=== PATIENT | female | born 1970 | race Asian ===

== ENCOUNTER 2021-12-02 17:55 | Emergency (ER) | payer OTHER, SELFPAY ==
[2021-12-02 18:37] VITALS: BMI 34.7
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
== END 2021-12-02 19:34 | disposition left against medical advice (07) ==
PROVIDERS: Emergency Provider Emergency Medicine
DX: R07.9 Chest pain, unspecified (principal)
CPT/HCPCS: 71101; 99283

== ENCOUNTER 2022-03-31 19:11 | Emergency (ER) | payer OTHER, MEDICAID, SELFPAY ==
[2022-03-31 19:15] VITALS: BP 146/86; PULSE 94; RESP 22; TEMP 36.4; O2SAT 97
--- NOTE | 2022-03-31 19:19 | DI.RAD.S_ITS ---
PROCEDURE: XR KNEE LT 3V INDICATIONS: pain TECHNIQUE: 3 views of the knee were acquired. COMPARISON: None. FINDINGS: Bones: No fractures or dislocations. There is mild osteophytosis. Moderate lateral tilt and shift of the patella is demonstrated with mild narrowing in the patellofemoral compartment laterally. No suspicious bony lesions. Soft tissues: There is a moderate joint effusion. No suspicious soft tissue calcifications. IMPRESSION: 1. No fracture or dislocation. 2. Moderate size joint effusion. 3. Mild osteoarthritic changes most prominent within the patellofemoral compartment. Dictated by: Franck Ascencio M.D. on 03/31/2022 at 20:08 Approved by: Franck Ascencio M.D. on 03/31/2022 at 20:11
--- NOTE | 2022-03-31 19:19 | DI.RAD.S_ITS ---
PROCEDURE: XR KNEE RT 3V INDICATIONS: pain TECHNIQUE: 3 views of the knee were acquired. COMPARISON: [facility], CR, XR KNEE LT 3V, 03/31/2022, 19:18. FINDINGS: Bones: No fractures or dislocations. There is mild osteophytosis. Mild joint space narrowing is demonstrated in the medial compartment with mild subchondral sclerosis. There is moderate lateral tilt and shift of the patella with mild narrowing in the patellofemoral compartment laterally. No suspicious bony lesions. Soft tissues: There is a moderate joint effusion. No suspicious soft tissue calcifications. IMPRESSION: 1. No fracture or dislocation. 2. Moderate joint effusion. 3. Mild osteoarthritic changes, most prominent within the patellofemoral compartment. Dictated by: Franck Ascencio M.D. on 03/31/2022 at 20:11 Approved by: Franck Ascencio M.D. on 03/31/2022 at 20:13
== END 2022-03-31 19:59 | disposition left against medical advice (07) ==
PROVIDERS: Emergency Provider Emergency Medicine
DX: M25.562 Pain in left knee (principal); M25.561 Pain in right knee
CPT/HCPCS: 73562; 99281

== ENCOUNTER 2022-04-15 16:06 | Emergency (ER) | payer OTHER, MEDICAID, SELFPAY ==
[2022-04-15 16:10] VITALS: BP 180/82; PULSE 107; RESP 18; TEMP 37; O2SAT 98; BMI 35.6
== END 2022-04-15 16:16 | disposition left against medical advice (07) ==
LOC: ED 17:13
PROVIDERS: Emergency Provider Emergency Medicine
CPT/HCPCS: 99281

== ENCOUNTER → 2022-04-23 11:36 | Outpatient (CLI) | payer OTHER, MEDICAID, SELFPAY ==
[2022-04-23 12:30] LABS: Influenza A - CEPHEID Flu A NEGATIVE (NEGATIVE); Influenza B - CEPHEID Flu B NEGATIVE (NEGATIVE)
[2022-04-23 14:21] LABS: COVID-19 CEPHEID PCR (VTM/NP) POSITIVE (Negative)
== END ==
PROVIDERS: Visit Provider Nurse Practitioner
DX: R05.9 Cough, unspecified (principal); R50.9 Fever, unspecified
CPT/HCPCS: 0240U

== ENCOUNTER 2022-06-25 05:29 | Emergency (ER) | payer OTHER, MEDICAID, SELFPAY ==
[2022-06-25] VITALS (14 sets, daily range): BP systolic 98–141; BP diastolic 54–72; PULSE 92–183; RESP 15–37; O2SAT 96–100; BMI 39.3
--- NOTE | 2022-06-25 05:37 | DI.RAD.S_ITS ---
PROCEDURE: XR CHEST 1V INDICATIONS: chest pain TECHNIQUE: One view of the chest was acquired. COMPARISON: [facility], CR, XR RIBS LT MIN 3V W CXR1V, 12/02/2021, 18:33. FINDINGS: Surgical changes and devices: None. Lungs and pleura: Lungs are clear. No pleural effusions or pneumothorax. Mediastinum: Mediastinal contours appear normal. Heart size is borderline enlarged, stable when compared to the prior exam. Bones and chest wall: No suspicious bony lesions. Overlying soft tissues appear unremarkable. IMPRESSION: Borderline cardiomegaly. No acute cardiopulmonary abnormality. There is no significant discrepancy when compared to the overnight preliminary report. Dictated by: Paulie Pastrana M.D. on 06/25/2022 at 8:14 Approved by: Paulie Pastrana M.D. on 06/25/2022 at 8:16
--- NOTE | 2022-06-25 05:49 | ED_ITS ---
HPI - Chest Pain <Brandon Butler MD - Last Filed: 07/01/22 18:14> General Chief Complaint: Chest Pain Stated Complaint: chest pain, cold sweaty Time Seen by Provider: 06/25/22 05:36 History of Present Illness HPI narrative: Patient brought here by her boyfriend. Complains 3 hours palpitations chest discomfort diaphoresis dizziness. Patient denies any medical problems. She is not seen a doctor in 7 years. No history of heart attack strokes or diabetes or arrhythmias. No recent illness. Denies any drugs or alcohol. This occurred while she was at work tonight. Patient is in SVT. No prior history of this. Denies any thyroid disease. Related Data Previous Rx's Medication Instructions Recorded benzonatate 200 mg capsule 200 mg PO BID-TID PRN cough #30 04/23/22 caps fluticasone propionate 50 1 spray intranasal BID sinusitis 04/23/22 mcg/actuation nasal #16 grams spray,suspension (Flonase Allergy Relief) Allergies Allergy/AdvReac Type Severity Reaction Status Date / Time aspirin Allergy Verified 04/23/22 11:03 Penicillins Allergy Verified 04/23/22 11:03 Review of Systems <Brandon Butler MD - Last Filed: 07/01/22 18:14> Review of Systems Narrative: GENERAL: Denies chills, fatigue, positive for malaise, negative for fever, positive for sweats. HEENT: Denies sinus pain, ear pain, sore throat RESPIRATORY: Denies dyspnea, cough CARDIOVASCULAR: Positive for chest pain, palpitations GASTROINTESTINAL: Denies nausea, vomiting, abdominal pain : Denies dysuria, frequency, hematuria MUSCULOSKELETAL: denies muscle or bony pain SKIN: Denies rash, skin lesions NEUROLOGIC: Denies weakness, numbness, positive for dizziness ROS Unobtainable: All systems reviewed & are unremarkable except as noted in HPI and below Patient History <Brandon Butler MD - Last Filed: 07/01/22 18:14> Social History Smoking Status: Current every day smoker Smoking Status: Current every day smoker alcohol intake frequency: 0-2 drinks per day Substance Use Type: does not use Exam <Brandon Butler MD - Last Filed: 07/01/22 18:14> Narrative Exam Narrative: GENERAL: in no distress, not toxic not dyspneic HEAD: Normocephalic. EYES: Pupils equal round No scleral icterus. ENT: Mucous membranes moist. NECK: Trachea midline. CARDIOVASCULAR: Tachycardia but Regular rate and rhythm RESPIRATORY: Clear to auscultation. Breath sounds equal bilaterally. No wheezes, rales, or rhonchi. GASTROINTESTINAL: Abdomen soft, non-tender EXTREMITIES: No gross deformities. BACK: No flank tenderness. NEURO: AOx4. SKIN: Warm and slightly diaphoretic PSYCH: Is slightly anxious, is cooperative Initial Vital Signs Initial Vital Signs: Vital Signs Pulse Rate 183 H 06/25/22 05:45 Respiratory Rate 22 06/25/22 05:45 Blood Pressure 98/64 06/25/22 05:45 Pulse Oximetry 99 06/25/22 05:45 Oxygen Delivery Method 06/25/22 05:45 <Malika Carter DO - Last Filed: 06/30/22 04:09> Initial Vital Signs Initial Vital Signs: Vital Signs Pulse Rate 183 H 06/25/22 05:45 Respiratory Rate 06/25/22 05:45 Blood Pressure 98/64 06/25/22 05:45 Pulse Oximetry 99 06/25/22 05:45 Oxygen Delivery Method 06/25/22 05:45 Course <Brandon Butler MD - Last Filed: 07/01/22 18:14> Course Course Narrative: 7:00 a.m.. Sign out to Dr. Carter 2nd troponin is pending at 7:45 a.m.. Patient has no previous medical history. Patient converted very well with Adenocard. X-ray chest pending results. Orders Ordered: Discontinued Medications Adenosine (Adenosine 6 Mg/2 Ml Vial) 6 mg IV NOW ONE Stop: 06/25/22 05:41 Last Admin: 06/25/22 05:55 Dose: 6 mg Documented By: AP Vital Signs Vital signs: Vital Signs - 8 hr 06/25/22 05:45 06/25/22 05:58 06/25/22 05:59 Pulse Rate 183 H 110 H 110 H Respiratory Rate 22 26 H 37 H Blood Pressure 98/64 Pulse Oximetry 99 Oxygen Delivery Method Room Air 06/25/22 05:59 06/25/22 06:00 06/25/22 06:00 Pulse Rate 110 H Respiratory Rate 25 H Blood Pressure 104/56 L 104/56 L Pulse Oximetry Oxygen Delivery Method 06/25/22 06:30 06/25/22 06:30 06/25/22 07:00 Pulse Rate 107 H 104 H Respiratory Rate 18 18 Blood Pressure 98/64 Pulse Oximetry 96 96 Oxygen Delivery Method 06/25/22 07:01 06/25/22 07:01 06/25/22 07:30 Pulse Rate 104 H Respiratory Rate 18 Blood Pressure 113/58 L 112/54 L Pulse Oximetry 96 Oxygen Delivery Method 06/25/22 07:30 06/25/22 08:00 06/25/22 08:00 Pulse Rate 98 H 97 H Respiratory Rate 18 18 Blood Pressure 127/58 L Pulse Oximetry 96 98 Oxygen Delivery Method 06/25/22 08:30 06/25/22 08:30 06/25/22 09:00 Pulse Rate 95 H Respiratory Rate 17 Blood Pressure 114/57 L 118/67 Pulse Oximetry 98 Oxygen Delivery Method 06/25/22 09:00 Pulse Rate 93 H Respiratory Rate 16 Blood Pressure Pulse Oximetry 99 Oxygen Delivery Method <Malika Carter, - Last Filed: 06/30/22 04:09> Orders Ordered: Discontinued Medications Adenosine (Adenosine 6 Mg/2 Ml Vial) 6 mg IV NOW ONE Stop: 06/25/22 05:41 Last Admin: 06/25/22 05:55 Dose: 6 mg Documented By: AP Vital Signs Vital signs: Vital Signs - 8 hr 06/25/22 05:45 06/25/22 05:58 06/25/22 05:59 Pulse Rate 183 H 110 H 110 H Respiratory Rate 22 26 H 37 H Blood Pressure 98/64 Pulse Oximetry 99 Oxygen Delivery Method Room Air 06/25/22 05:59 06/25/22 06:00 06/25/22 06:00 Pulse Rate 110 H Respiratory Rate 25 H Blood Pressure 104/56 L 104/56 L Pulse Oximetry Oxygen Delivery Method 06/25/22 06:30 06/25/22 06:30 06/25/22 07:00 Pulse Rate 107 H 104 H Respiratory Rate 18 18 Blood Pressure 98/64 Pulse Oximetry 96 96 Oxygen Delivery Method 06/25/22 07:01 06/25/22 07:01 06/25/22 07:30 Pulse Rate 104 H Respiratory Rate 18 Blood Pressure 113/58 L 112/54 L Pulse Oximetry 96 Oxygen Delivery Method 06/25/22 07:30 06/25/22 08:00 06/25/22 08:00 Pulse Rate 98 H 97 H Respiratory Rate 18 18 Blood Pressure 127/58 L Pulse Oximetry 96 98 Oxygen Delivery Method 06/25/22 08:30 06/25/22 08:30 06/25/22 09:00 Pulse Rate 95 H Respiratory Rate 17 Blood Pressure 114/57 L 118/67 Pulse Oximetry 98 Oxygen Delivery Method 06/25/22 09:00 Pulse Rate 93 H Respiratory Rate 16 Blood Pressure Pulse Oximetry 99 Oxygen Delivery Method MDM - Chest Pain <Brandon Butler MD - Last Filed: 07/01/22 18:14> Differential Diagnosis Differential diagnosis: Likely stable angina, unstable angina pectoris and other (SVT/AFib/AF flutter) Lab Data Result diagrams: 06/25/22 05:45 06/25/22 05:45 Labs: Lab Results 06/25/22 06/25/22 06/25/22 Range/Units 05:45 05:45 05:45 WBC 9.4 (4.5-11.0) X10^3/uL RBC 5.08 (4.0-5.2) X10^6/uL Hgb 15.0 (12.0-16.0) g/dL Hct 42.5 (36-46) % MCV 83.7 (80-100) fL MCH 29.6 (26-34) PG MCHC 35.4 (30-36) % RDW 13.3 (11.6-14.8) % Plt Count 319 (150-400) X10^3/uL Neut % (Auto) 68.6 (50-75) % Lymph % (Auto) 23.0 L (25-40) % [place] % (Auto) 7.3 (3-14) % Eos % (Auto) 0.1 L (2-4) % Baso % (Auto) 1.0 (0-2) % Neut # (Auto) 6500 (2439-2799) /uL Lymph # (Auto) 2200 (6304-0176) /uL [place] # (Auto) 700 (0-900) /uL Eos # (Auto) 0 (0-450) /uL Baso # (Auto) 100 (0-100) /uL Sodium 140 (137-145) mmol/L Potassium 3.8 (3.4-5.1) mmol/L Chloride 103 (98-107) mmol/L Carbon Dioxide 28 (22-32) mmol/L BUN 13 (7-17) mg/dL Creatinine 0.76 (0.52-1.04) mg/dL Estimated GFR > 60 (>60) mL/min BUN/Creatinine Ratio 17.1 (6-22) Glucose 115 H (70-100) mg/dL Calcium 9.0 (8.4-10.2) mg/dL Magnesium (1.6-2.3) mg/dL Total Bilirubin 0.6 (0.2-1.3) mg/dL AST 35 (14-36) IU/L ALT 22 (<35) IU/L Alkaline Phosphatase 123 (38-126) U/L Total Creatine Kinase 147 H (30-135) U/L CK-MB (CK-2) 2.63 H (<2.37) ng/mL CK-MB (CK-2) Rel Index 1.8 (1.5-5.0) % Troponin I < 0.012 (0.01-0.034) ng/mL Total Protein 9.3 H (6.3-8.2) g/dL Albumin 4.5 (3.5-5.0) g/dL Globulin 4.8 H (1.7-4.1) g/dL Albumin/Globulin Ratio 0.9 L (1.0-2.8) TSH 2.35 (0.47-4.68) uIU/mL 06/25/22 06/25/22 Range/Units 05:45 08:05 WBC (4.5-11.0) X10^3/uL RBC (4.0-5.2) X10^6/uL Hgb (12.0-16.0) g/dL Hct (36-46) % MCV (80-100) fL MCH (26-34) PG MCHC (30-36) % RDW (11.6-14.8) % Plt Count (150-400) X10^3/uL Neut % (Auto) (50-75) % Lymph % (Auto) (25-40) % [place] % (Auto) (3-14) % Eos % (Auto) (2-4) % Baso % (Auto) (0-2) % Neut # (Auto) (9021-0388) /uL Lymph # (Auto) (4868-4855) /uL [place] # (Auto) (0-900) /uL Eos # (Auto) (0-450) /uL Baso # (Auto) (0-100) /uL Sodium (137-145) mmol/L Potassium (3.4-5.1) mmol/L Chloride (98-107) mmol/L Carbon Dioxide (22-32) mmol/L BUN (7-17) mg/dL Creatinine (0.52-1.04) mg/dL Estimated GFR (>60) mL/min BUN/Creatinine Ratio (6-22) Glucose (70-100) mg/dL Calcium (8.4-10.2) mg/dL Magnesium 1.8 (1.6-2.3) mg/dL Total Bilirubin (0.2-1.3) mg/dL AST (14-36) IU/L ALT (<35) IU/L Alkaline Phosphatase (38-126) U/L Total Creatine Kinase 110 (30-135) U/L CK-MB (CK-2) 1.79 (<2.37) ng/mL CK-MB (CK-2) Rel Index 1.6 (1.5-5.0) % Troponin I 0.019 (0.01-0.034) ng/mL Total Protein (6.3-8.2) g/dL Albumin (3.5-5.0) g/dL Globulin (1.7-4.1) g/dL Albumin/Globulin Ratio (1.0-2.8) TSH (0.47-4.68) uIU/mL ECG Data Interpretation: 1st EKG at 5:38 a.m. Supraventricular tachycardia, rate 182 Second EKG at 6:00 a.m.. Sinus tachycardia rate [address] elevation or depression <Malika Carter DO - Last Filed: 06/30/22 04:09> Lab Data Labs: Lab Results 06/25/22 06/25/22 06/25/22 Range/Units 05:45 05:45 05:45 WBC 9.4 (4.5-11.0) X10^3/uL RBC 5.08 (4.0-5.2) X10^6/uL Hgb 15.0 (12.0-16.0) g/dL Hct 42.5 (36-46) % MCV 83.7 (80-100) fL MCH 29.6 (26-34) PG MCHC 35.4 (30-36) % RDW 13.3 (11.6-14.8) % Plt Count 319 (150-400) X10^3/uL Neut % (Auto) 68.6 (50-75) % Lymph % (Auto) 23.0 L (25-40) % [place] % (Auto) 7.3 (3-14) % Eos % (Auto) 0.1 L (2-4) % Baso % (Auto) 1.0 (0-2) % Neut # (Auto) 6500 (1622-3285) /uL Lymph # (Auto) 2200 (2643-7763) /uL [place] # (Auto) 700 (0-900) /uL Eos # (Auto) 0 (0-450) /uL Baso # (Auto) 100 (0-100) /uL Sodium 140 (137-145) mmol/L Potassium 3.8 (3.4-5.1) mmol/L Chloride 103 (98-107) mmol/L Carbon Dioxide 28 (22-32) mmol/L BUN 13 (7-17) mg/dL Creatinine 0.76 (0.52-1.04) mg/dL Estimated GFR > 60 (>60) mL/min BUN/Creatinine Ratio 17.1 (6-22) Glucose 115 H (70-100) mg/dL Calcium 9.0 (8.4-10.2) mg/dL Magnesium (1.6-2.3) mg/dL Total Bilirubin 0.6 (0.2-1.3) mg/dL AST 35 (14-36) IU/L ALT 22 (<35) IU/L Alkaline Phosphatase 123 (38-126) U/L Total Creatine Kinase 147 H (30-135) U/L CK-MB (CK-2) 2.63 H (<2.37) ng/mL CK-MB (CK-2) Rel Index 1.8 (1.5-5.0) % Troponin I < 0.012 (0.01-0.034) ng/mL Total Protein 9.3 H (6.3-8.2) g/dL Albumin 4.5 (3.5-5.0) g/dL Globulin 4.8 H (1.7-4.1) g/dL Albumin/Globulin Ratio 0.9 L (1.0-2.8) TSH 2.35 (0.47-4.68) uIU/mL 06/25/22 06/25/22 Range/Units 05:45 08:05 WBC (4.5-11.0) X10^3/uL RBC (4.0-5.2) X10^6/uL Hgb (12.0-16.0) g/dL Hct (36-46) % MCV (80-100) fL MCH (26-34) PG MCHC (30-36) % RDW (11.6-14.8) % Plt Count (150-400) X10^3/uL Neut % (Auto) (50-75) % Lymph % (Auto) (25-40) % [place] % (Auto) (3-14) % Eos % (Auto) (2-4) % Baso % (Auto) (0-2) % Neut # (Auto) (1090-3225) /uL Lymph # (Auto) (8294-0247) /uL [place] # (Auto) (0-900) /uL Eos # (Auto) (0-450) /uL Baso # (Auto) (0-100) /uL Sodium (137-145) mmol/L Potassium (3.4-5.1) mmol/L Chloride (98-107) mmol/L Carbon Dioxide (22-32) mmol/L BUN (7-17) mg/dL Creatinine (0.52-1.04) mg/dL Estimated GFR (>60) mL/min BUN/Creatinine Ratio (6-22) Glucose (70-100) mg/dL Calcium (8.4-10.2) mg/dL Magnesium 1.8 (1.6-2.3) mg/dL Total Bilirubin (0.2-1.3) mg/dL AST (14-36) IU/L ALT (<35) IU/L Alkaline Phosphatase (38-126) U/L Total Creatine Kinase 110 (30-135) U/L CK-MB (CK-2) 1.79 (<2.37) ng/mL CK-MB (CK-2) Rel Index 1.6 (1.5-5.0) % Troponin I 0.019 (0.01-0.034) ng/mL Total Protein (6.3-8.2) g/dL Albumin (3.5-5.0) g/dL Globulin (1.7-4.1) g/dL Albumin/Globulin Ratio (1.0-2.8) TSH (0.47-4.68) uIU/mL Imaging Data Chest x-ray: Radiologist's Impression: cardomegaly without heart failure. ECG Data Interpretation: 1st EKG at 5:38 a.m. Supraventricular tachycardia, rate 182 Second EKG at 6:00 a.m.. Sinus tachycardia rate [address] elevation or depression EKG 3 shows sinus rhythm rate of 90 6p are 158 QRS of 90 QTC [address] No acute [address] elevation or depression changes. Nonacute change comparison to priors. MDM Narrative Medical decision making narrative: 06/25/22 Mank: Patient signed out to myself by Dr. Butler. Patient seen independently evaluated by myself. Patient had 1st note episode of SVT, converted with adenosine. Chest x-ray shows cardiomegaly, no acute ST changes patient has had significant improvement in her heart rate during her stay without additional episodes. Patient's did not show any acute changes or significant electrolyte abnormalities. Troponin was repeated at 2 hour ana as well as EKG with no dynamic changes. It was noted patient had COVID in April of 2022. At this time plan for patient to follow up outpatient with Cardiology. 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 All questions answered. Discharge Plan Departure Patient Disposition: Home Clinical Impression: SVT (supraventricular tachycardia) Instructions: Paroxysmal Supraventricular Tachycardia Activity Restrictions/Additional Instructions: Follow-up with cardiology for recheck. In the interim you can follow up with your primary care physician. Please call for an appointment. Referral is included below. You have been diagnosed with SVT or supraventricular tachycardia. This can happen intermittently some individuals ultimately end up taking medication or even having an ablation of the heart but some individuals have very rare episodes and do not require any medications. Your heart size is slightly enlarged and you should follow up to have an echo at some point in the future. Please return if you have new or recurrent symptoms, if you are having chest pain, shortness of breath, lightheadedness or passing out, recurrent very fast and/or persistently fast heart rate, new swelling in your extremities or other new or concerning symptoms. Prescriptions: No Action fluticasone propionate [Flonase Allergy Relief] 50 mcg/actuation spray,susp ension 1 spray intranasal BID Qty: 16 0RF Rx Instructions: administer into each nostril benzonatate 200 mg capsule 200 mg PO BID-TID PRN (Reason: cough) Qty: 30 0RF Referrals: Miscellaneous,DoctorMD [Primary Care Provider] - Aliya Matias MD [Physician] - Visit Report Forms: Patient Portal/API
[2022-06-25 05:54] LABS: Add Manual Diff / Slide Review NO; Basophils Absolute Auto 100 /uL (0-100); Eosinophils Absolute Auto 0 /uL (0-450); Eosinophils Percent Auto 0.1 % (2-4); Hematocrit 42.5 % (36-46); Lymphocytes Absolute Auto 2200 /uL (1100-4500); Mean Corpuscular HGB Conc 35.4 % (30-36); Mean Corpuscular Hemoglobin 29.6 PG (26-34); Mean Corpuscular Volume 83.7 fL (80-100); Monocytes Absolute Auto 700 /uL (0-900); Monocytes Percent Auto 7.3 % (3-14); Neutrophils Absolute Auto 6500 /uL (1500-7000); Neutrophils Percent Auto 68.6 % (50-75); Platelet Count 319 X10^3/uL (150-400); Red Blood Cell Count 5.08 X10^6/uL (4.0-5.2); Red Cell Distribution Width 13.3 % (11.6-14.8); White Blood Cell Count 9.4 X10^3/uL (4.5-11.0)
[2022-06-25] MEDS: ADENOSINE 6 MG/2 ML VIAL IV (05:55)
[2022-06-25 06:06] LABS: Alanine Aminotransferase 22 IU/L (<35); Albumin 4.5 g/dL (3.5-5.0); Albumin Globulin Ratio 0.9 (1.0-2.8); BUN Creatinine Ratio 17.1 (6-22); Bilirubin Total 0.6 mg/dL (0.2-1.3); Blood Urea Nitrogen 13 mg/dL (7-17); Carbon Dioxide 28 mmol/L (22-32); Chloride 103 mmol/L (98-107); Creatine Kinase 147 U/L (30-135); Estimated Glomerular Filt Rate > 60 mL/min (>60); Globulin 4.8 g/dL (1.7-4.1); Glucose 115 mg/dL (70-100); Sodium 140 mmol/L (137-145); Total Protein 9.3 g/dL (6.3-8.2)
[2022-06-25 06:07] LABS: Aspartate Aminotransferase 35 IU/L (14-36); Potassium 3.8 mmol/L (3.4-5.1)
[2022-06-25 06:08] LABS: Alkaline Phosphatase 123 U/L (38-126)
[2022-06-25 06:18] LABS: Troponin I < 0.012 ng/mL (0.01-0.034)
[2022-06-25 06:21] LABS: CKMB % Relative Index 1.8 % (1.5-5.0); Creatine Kinase MB 2.63 ng/mL (<2.37)
[2022-06-25 06:23] LABS: HEMOLYSIS 75 (0-50)
[2022-06-25 06:38] LABS: Magnesium 1.8 mg/dL (1.6-2.3)
[2022-06-25 06:48] LABS: Thyroid Stimulating Hormone 2.35 uIU/mL (0.47-4.68)
[2022-06-25 08:29] LABS: Creatine Kinase 110 U/L (30-135)
[2022-06-25 08:42] LABS: Troponin I 0.019 ng/mL (0.01-0.034)
[2022-06-25 08:44] LABS: CKMB % Relative Index 1.6 % (1.5-5.0); Creatine Kinase MB 1.79 ng/mL (<2.37)
--- NOTE | 2022-06-25 09:26 | PC.NURSE ---
message left with bonny mckeonientemi to come pick patient up [phone]
== END 2022-06-25 10:47 | disposition home or self-care (01) ==
PROVIDERS: Emergency Medicine; Emergency Provider Emergency Medicine
DX: I47.1 Supraventricular tachycardia (principal); I51.7 Cardiomegaly; Z86.16 Personal history of COVID-19
CPT/HCPCS: 36415; 71045; 80053; 82550; 82553; 83735; 84443; 84484; 85025; 93005; 93010; 96374; 99284; J0153

== ENCOUNTER 2022-07-09 15:46 | Emergency (ER) | payer OTHER, MEDICAID, SELFPAY ==
[2022-07-09] VITALS (9 sets, daily range): BP systolic 113–131; BP diastolic 64–76; PULSE 89–110; RESP 17–22; TEMP 37.1; O2SAT 96–99; BMI 36.6
--- NOTE | 2022-07-09 16:01 | DI.RAD.S_ITS ---
PROCEDURE: XR CHEST 1V INDICATIONS: chest pain TECHNIQUE: One view of the chest was acquired. COMPARISON: [facility], CR, XR CHEST 1V, 06/25/2022, 6:05. FINDINGS: Surgical changes and devices: None. Lungs and pleura: Lungs are clear. No pleural effusions or pneumothorax. Mediastinum: Mediastinal contours appear normal. Heart size is normal. Bones and chest wall: No suspicious bony lesions. Overlying soft tissues appear unremarkable. IMPRESSION: No acute process. Dictated by: Jenae Oates M.D. on 07/09/2022 at 16:23 Approved by: Jenae Oates M.D. on 07/09/2022 at 16:23
[2022-07-09 16:13] LABS: Add Manual Diff / Slide Review NO; Basophils Absolute Auto 100 /uL (0-100); Basophils Percent Auto 0.6 % (0-2); Eosinophils Absolute Auto 0 /uL (0-450); Eosinophils Percent Auto 0.1 % (2-4); Hematocrit 40.7 % (36-46); Hemoglobin 14.3 g/dL (12.0-16.0); Lymphocytes Absolute Auto 2400 /uL (1100-4500); Lymphocytes Percent Auto 26.9 % (25-40); Mean Corpuscular Hemoglobin 29.6 PG (26-34); Mean Corpuscular Volume 84.4 fL (80-100); Monocytes Absolute Auto 600 /uL (0-900); Monocytes Percent Auto 6.6 % (3-14); Neutrophils Absolute Auto 5800 /uL (1500-7000); Neutrophils Percent Auto 65.8 % (50-75); Platelet Count 317 X10^3/uL (150-400); Red Blood Cell Count 4.83 X10^6/uL (4.0-5.2); Red Cell Distribution Width 13.3 % (11.6-14.8); White Blood Cell Count 8.8 X10^3/uL (4.5-11.0)
[2022-07-09 17:18] LABS: Alanine Aminotransferase 21 IU/L (<35); Albumin 4.5 g/dL (3.5-5.0); Alkaline Phosphatase 115 U/L (38-126); Aspartate Aminotransferase 33 IU/L (14-36); BUN Creatinine Ratio 18.2 (6-22); Bilirubin Total 0.7 mg/dL (0.2-1.3); Blood Urea Nitrogen 16 mg/dL (7-17); Calcium 8.9 mg/dL (8.4-10.2); Carbon Dioxide 24 mmol/L (22-32); Chloride 103 mmol/L (98-107); Creatine Kinase 83 U/L (30-135); Estimated Glomerular Filt Rate > 60 mL/min (>60); Globulin 4.3 g/dL (1.7-4.1); Glucose 165 mg/dL (70-100); HEMOLYSIS 38 (0-50); Lipase 74 U/L (23-300); Potassium 3.5 mmol/L (3.4-5.1); Sodium 141 mmol/L (137-145); Total Protein 8.8 g/dL (6.3-8.2)
[2022-07-09 17:29] LABS: Troponin I < 0.012 ng/mL (0.01-0.034)
--- NOTE | 2022-07-09 17:32 | ED_ITS ---
HPI - Chest Pain General Chief Complaint: Chest Pain Stated Complaint: SVT, resolved with Diltiazem Time Seen by Provider: 07/09/22 16:01 Source: patient and EMS Mode of arrival: EMS Limitations: no limitations History of Present Illness HPI narrative: The patient is a 51-year-old female does not go to doctors and has no medical problems presents today for her 2nd episode of SVT in through the. She was previously seen on June 25 for the same. 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 She was given diltiazem 15 mg by EMS and converted into sinus rhythm quickly. She states she drinks Pepsi all day long and drinks a lot of caffeine. She has been resting comfortably in sinus rhythm denies any chest pain palpitations or shortness of breath Related Data Previous Rx's Medication Instructions Recorded benzonatate 200 mg capsule 200 mg PO BID-TID PRN cough #30 04/23/22 caps fluticasone propionate 50 1 spray intranasal BID sinusitis 04/23/22 mcg/actuation nasal #16 grams spray,suspension (Flonase Allergy Relief) Allergies Allergy/AdvReac Type Severity Reaction Status Date / Time aspirin Allergy Verified 04/23/22 11:03 Penicillins Allergy Verified 04/23/22 11:03 Review of Systems Review of Systems Narrative: GENERAL: Denies chills, fatigue, malaise, fever, sweats, travel HEENT: Denies sinus pain, ear pain, sore throat, difficulty swallowing, neck pain RESPIRATORY: Denies dyspnea, cough, wheezing, hemoptysis, sputum. CARDIOVASCULAR: See HPI GASTROINTESTINAL: Denies nausea, vomiting, abdominal pain, diarrhea, con stipation, melena. : Denies dysuria, frequency, incontinence, hematuria, urinary retention, flank pain. MUSCULOSKELETAL: Denies weakness, joint pain, or bony pain SKIN: No rash, no erythema, no pruritus NEUROLOGIC: Denies weakness, dizziness, headache, numbness, change in speech, confusion PSYCHIATRIC: No concerning psychosocial issues. 12 point review of systems is negative except for those stated above and HPI Patient History Social History Smoking Status: Current every day smoker Smoking Status: Current every day smoker alcohol intake frequency: 0-2 drinks per day Substance Use Type: does not use Exam Initial Vital Signs Initial Vital Signs: Vital Signs Temperature 98.7 F 07/09/22 15:54 Pulse Rate 109 H 07/09/22 15:54 Respiratory Rate 18 07/09/22 15:54 Blood Pressure 129/76 07/09/22 15:54 Pulse Oximetry 98 07/09/22 15:54 Oxygen Delivery Method 07/09/22 15:54 GENERAL: Alert pleasant 51-year-old female and in no acute distress. HEENT: Head atraumatic,EOMI, pupils reactive, face symmetric, moist mucous membranes CARDIOVASCULAR: Regular rate and rhythm without murmurs, rubs or gallops. RESPIRATORY: Breath sounds equal bilaterally, no wheezes rales or rhonchi. ABDOMEN: Soft, nontender. Normoactive bowel sounds all 4 quadrants. No guarding or rebound. EXTREMITIES: Normal range of motion, no clubbing or edema. Neurovascularly intact NEUROLOGICAL: Alert and oriented x4.Normal gait and speech. SKIN: Warm, dry, no laceration, no petechiae, no rashes or lesions. Course Orders Ordered: ED Orders 07/09/22 16:01 XR chest 1V Stat EKG-12 Lead Stat 07/09/22 16:04 Complete Blood Count AUTO DIFF Stat Comprehensive Metabolic Panel Stat Lipase Stat Troponin & CK Cardiac Panel Stat Vital Signs Vital signs: Vital Signs - 8 hr 07/09/22 15:54 07/09/22 15:54 07/09/22 15:54 Temperature 98.7 F Pulse Rate 109 H 110 H Respiratory Rate 18 Blood Pressure 129/76 129/76 Pulse Oximetry 98 98 Oxygen Delivery Method Room Air 07/09/22 16:00 07/09/22 16:00 07/09/22 16:12 Temperature Pulse Rate 107 H Respiratory Rate 22 Blood Pressure 128/75 129/74 Pulse Oximetry 96 Oxygen Delivery Method 07/09/22 16:12 07/09/22 16:30 07/09/22 16:30 Temperature Pulse Rate 108 H 100 H Respiratory Rate 18 19 Blood Pressure 113/70 Pulse Oximetry 99 99 Oxygen Delivery Method 07/09/22 16:57 07/09/22 16:57 07/09/22 17:00 Temperature Pulse Rate 94 H 92 H Respiratory Rate 20 20 Blood Pressure 124/74 Pulse Oximetry 97 97 Oxygen Delivery Method 07/09/22 17:30 07/09/22 17:30 07/09/22 18:00 Temperature Pulse Rate 92 H Respiratory Rate 17 Blood Pressure 131/70 128/66 Pulse Oximetry 96 Oxygen Delivery Method 07/09/22 18:00 Temperature Pulse Rate 93 H Respiratory Rate 18 Blood Pressure Pulse Oximetry 97 Oxygen Delivery Method MDM - Chest Pain Lab Data Result diagrams: 07/09/22 16:04 07/09/22 16:04 Labs: Lab Results 07/09/22 07/09/22 Range/Units 16:04 16:04 WBC 8.8 (4.5-11.0) X10^3/uL RBC 4.83 (4.0-5.2) X10^6/uL Hgb 14.3 (12.0-16.0) g/dL Hct 40.7 (36-46) % MCV 84.4 (80-100) fL MCH 29.6 (26-34) PG MCHC 35.0 (30-36) % RDW 13.3 (11.6-14.8) % Plt Count 317 (150-400) X10^3/uL Neut % (Auto) 65.8 (50-75) % Lymph % (Auto) 26.9 (25-40) % Wirt % (Auto) 6.6 (3-14) % Eos % (Auto) 0.1 L (2-4) % Baso % (Auto) 0.6 (0-2) % Neut # (Auto) 5800 (7540-0373) /uL Lymph # (Auto) 2400 (8146-0129) /uL Wirt # (Auto) 600 (0-900) /uL Eos # (Auto) 0 (0-450) /uL Baso # (Auto) 100 (0-100) /uL Sodium 141 (137-145) mmol/L Potassium 3.5 (3.4-5.1) mmol/L Chloride 103 (98-107) mmol/L Carbon Dioxide 24 (22-32) mmol/L BUN 16 (7-17) mg/dL Creatinine 0.88 (0.52-1.04) mg/dL Estimated GFR > 60 (>60) mL/min BUN/Creatinine Ratio 18.2 (6-22) Glucose 165 H (70-100) mg/dL Calcium 8.9 (8.4-10.2) mg/dL Total Bilirubin 0.7 (0.2-1.3) mg/dL AST 33 (14-36) IU/L ALT 21 (<35) IU/L Alkaline Phosphatase 115 (38-126) U/L Total Creatine Kinase 83 (30-135) U/L CK-MB (CK-2) TNP CK-MB (CK-2) Rel Index TNP Troponin I < 0.012 (0.01-0.034) ng/mL Total Protein 8.8 H (6.3-8.2) g/dL Albumin 4.5 (3.5-5.0) g/dL Globulin 4.3 H (1.7-4.1) g/dL Albumin/Globulin Ratio 1.0 (1.0-2.8) Lipase 74 (23-300) U/L Point of Care Testing Test Results Negative Urine Dip Bedside Urine Glucose Negative Bedside Urine Bilirubin - Negative Bedside Urine Ketone - Negative Urine Specific [employer] 1.015 Bedside Urine Occult Blood +/- Bedside Urine pH 6.5 Bedside Urine Protein - Negative Bedside Urine Urobilinogen - Negative Bedside Urine Nitrite - Negative Bedside Urine Leukocytes - Negative Esterase Imaging Data Chest x-ray: Radiologist's Impression: XRay Report Signed Patient: Marija Granados MR#: [id number] : 1970 Acct:[id number] Age/Sex: 51 / F Date of Service: 07/09/22 Loc: Accession Number: [id number] ?? Procedure: XR chest 1V Ordering Provider: Purnima Quintanilla D.O. PROCEDURE:? XR CHEST 1V ? INDICATIONS:? chest pain ? TECHNIQUE:? One view of the chest was acquired.? ? COMPARISON:? [facility], , XR CHEST 1V, 06/25/2022, 6:05. ? FINDINGS:? ? Surgical changes and devices:? None.? ? Lungs and pleura:? Lungs are clear.? No pleural effusions or pneumothorax.? ? Mediastinum:? Mediastinal contours appear normal.? Heart size is normal.? ? Bones and chest wall:? No suspicious bony lesions.? Overlying soft tissues appear unremarkable.? ? IMPRESSION:? No acute process. ? ? Dictated by: Jenae Oates M.D. on 07/09/2022 at 16:23? ECG Data Interpretation: Normal sinus rhythm rate 60 are in 50 QRS 94 QTC 520 MDM Narrative Medical decision making narrative: On EKG with EMS she did have SVT heart rate in the 180s. This is her 2nd episode. Consider starting her on metoprolol however talked with her about decreasing her caffeine intake. If this should happen again she may need medication. She overall is happy with this plan. She is not hypoxic she overall appears well. Blood work reassuring. Discharge Plan Departure Patient Disposition: Home Clinical Impression: SVT (supraventricular tachycardia) Instructions: Paroxysmal Supraventricular Tachycardia Activity Restrictions/Additional Instructions: *You have been diagnosed with SVT *What to do: This is her 2nd episode in 2 weeks. I strongly recommend that you cut down on the caffeine intake it may remain off be contributing. He may also need to be put on medication if this continues to happen. Please get a primary care provider so that they can follow you and manage this for you. You may also need to see Cardiology *Continue to take medications as directed *Follow up with your primary care provider in 2-3 days or call [phone] *Return to ER if you should have recurrent episodes chest pain palpitations or any new, worsening or concerning symptoms Prescriptions: No Action fluticasone propionate [Flonase Allergy Relief] 50 mcg/actuation spray,suspension 1 spray intranasal BID Qty: 16 0RF Rx Instructions: administer into each nostril benzonatate 200 mg capsule 200 mg PO BID-TID PRN (Reason: cough) Qty: 30 0RF Referrals: Miscellaneous,Doctor, [Primary Care Provider] - Visit Report Forms: Patient Portal/API
== END 2022-07-09 18:37 | disposition home or self-care (01) ==
PROVIDERS: Emergency Provider Emergency Medicine
DX: I47.1 Supraventricular tachycardia (principal); R07.9 Chest pain, unspecified
CPT/HCPCS: 71045; 80053; 81003; 81025; 82550; 83690; 84484; 85025; 93005; 99283; 99284